=== PATIENT | male | born 1935 | race Caucasian/White ===

== ENCOUNTER 2016-04-01 06:52 | Observation (INO) | payer BC, OTHER ==
[2016-04-01] MEDS ORDERED: CEFAZOLIN 2 GM/DEXTROSE/100 ML BAG IV ONE (08:36)
[2016-04-01 09:33] LABS: ANION GAP 12 mEq/L (8-16); CARBON DIOXIDE 24 mEq/l (22-31); CHLORIDE 106 mEq/L (97-110); GLOMERULAR FILTRATION RATE > 60; GLUCOSE 109 mg/dL (70-100); POTASSIUM 3.5 mEq/L (3.5-5.2); SODIUM 142 mEq/L (134-144)
[2016-04-01] MEDS ORDERED: BUPIVACAINE/EPI 0.25% 30 ML SDV ONE (09:51)
[2016-04-01] MEDS ORDERED: SKIN ADHESIVE (DERMABOND) 1 EACH TP ONE (09:51)
[2016-04-01] MEDS ORDERED: THROMBIN (RECOMBINANT) 20,000 UNIT VIAL TP ONE (09:51)
[2016-04-01] MEDS ORDERED: BUPIVACAINE 0.25% 30 ML SDV ONE (09:51)
[2016-04-01] MEDS ORDERED: BACITRACIN 50,000 UNITS/10 ML SYR IRR ONE (09:52)
[2016-04-01] MEDS ORDERED: REMIFENTANIL HCL 1 MG VIAL ONE ×2 (10:50→12:27)
[2016-04-01] MEDS ORDERED: PROPOFOL/EMULSION 500 MG/50 ML BOTTLE IV ONE ×2 (10:52→12:27)
[2016-04-01] MEDS ORDERED: SUCCINYLCHOLINE CHLORIDE*ANESTHESIA ONLY*200 MG/10 ML SYR IVP ONE (11:33)
[2016-04-01] MEDS ORDERED: LIDOCAINE 2% 5 ML SDV ONE (11:33)
[2016-04-01] MEDS ORDERED: DEXAMETHASONE 4 MG/ML VIAL ONE (11:34)
[2016-04-01] MEDS ORDERED: ONDANSETRON 4 MG/2 ML VIAL ONE (11:34)
[2016-04-01] MEDS ORDERED: epHEDrine SULFATE 10 MG/ML SYR ONE ×2 (11:35)
[2016-04-01] MEDS ORDERED: PHENYLEPHRINE HCL 100 MCG/ML SYR ONE ×2 (11:35→11:45)
[2016-04-01] MEDS ORDERED: VASOPRESSIN 20 UNIT/ML VIAL ONE (11:52)
[2016-04-01] MEDS ORDERED: PHENYLEPHRINE 10 MG/ML SDV ONE (12:22)
[2016-04-01] MEDS ORDERED: HYDROmorphONE/DILAUDID 2 MG/ML SYR ONE (13:00)
[2016-04-01] MEDS ORDERED: MAGNESIUM HYDROXIDE 30 ML UDCUP PO PRN (13:11)
[2016-04-01] MEDS ORDERED: ACETAMINOPHEN 325 MG TAB PO PRN (13:11)
[2016-04-01] MEDS ORDERED: LACTULOSE 20 GM/30 ML UDCUP PO PRN (13:11)
[2016-04-01] MEDS ORDERED: METHOCARBAMOL 750 MG TAB PO PRN (13:11)
[2016-04-01] MEDS ORDERED: DIAZEPAM 10 MG/2 ML SYR IVP PRN (13:11)
[2016-04-01] MEDS ORDERED: POLYETHYLENE GLYCOL 3350 17 GM PKT PO PRN (13:11)
[2016-04-01] MEDS ORDERED: ONDANSETRON DISINTEGRATING 4 MG TAB PO PRN (13:11)
[2016-04-01] MEDS ORDERED: BISACODYL 10 MG SUPP PR PRN (13:11)
[2016-04-01] MEDS ORDERED: ONDANSETRON 4 MG/2 ML VIAL IVP PRN (13:11)
[2016-04-01] MEDS ORDERED: diphenhydrAMINE 25 MG CAP PO PRN (13:11)
[2016-04-01] MEDS ORDERED: HYDROmorphONE/DILAUDID 1 MG/ML SYR IVP PRN (13:11)
[2016-04-01] MEDS ORDERED: PROMETHAZINE HCL 25 MG/ML VIAL IVP PRN (13:11)
[2016-04-01] MEDS ORDERED: NS W/ 20 KCl/L 1,000 ML IV SCH (13:15)
--- NOTE | 2016-04-01 13:17 | POSTOPPROG ---
Post Op Note Date of Operation: 04/01/16 Surgeon: Ansley Bean [employer]vac Services Professional: Kinza MCCRARYC Anesthesia: GET(General Endotracheal) Pre-op Diagnosis: lumbar stenosis Post-op Diagnosis: same Indication: spinal cord compression Procedure: L2-L5 laminectomy Findings: Please see Dr Del Angel's operative report Inf/Abcess present in the surg proc area at time of surgery?: No Depth: Organ Space EBL: 50-100 Complications: none Drains: Tony Juárez Specimen(s): none PA Addendum - Addendum .: S: Pt awake in PACU, denies pain or tingling/numbness O: AAOx3 NAD VSS MAEx4 Motor 5/5 BUE/BLE Incision dressed Jpx1 +LT A: 80 yo M s/p L2-5 laminectomy P: PT/OT Pain management No brace F/u path from sx TEDs, SCDs, lovenox tomorrow Call NS with any issues
[2016-04-01] MEDS ORDERED: fentaNYL 100 MCG/2 ML INJ ONE (13:48)
--- NOTE | 2016-04-01 14:10 | DX ---
Intraoperative Fluoroscopy of the Lumbar Spine Clinical History: 80-year-old male undergoing an L2-L5 lami. Findings: Dr. Soham Del Angel used 5.5 seconds of fluoroscopy time with an exposure dose of 2.52 mGy an d two lateral spot matrix intraoperative images were acquired of the lumbar spine identifying localiz ing probes over the posterior aspects of L2 and L5. Impression: Intraoperative fluoroscopy of the lumbar spine.
--- NOTE | 2016-04-01 17:48 | GOP ---
[f rep st] OPERATIVE REPORT DATE OF OPERATION: 04/01/2016 SURGEON: Soham Del Angel MD PATIENT FLOW COORDINATOR: Ansley Bean ANESTHESIA: General. PREOPERATIVE DIAGNOSIS: 1. Severe spinal stenosis L2-L3, L3-L4, L4-L5. 2. Claudication. 3. Treatment refractory to nonoperative intervention. POSTOPERATIVE DIAGNOSIS: 1. Severe spinal stenosis L2-L3, L3-L4, L4-L5. 2. Claudication. 3. Treatment refractory to nonoperative intervention. PROCEDURE PERFORMED: 1. Decompressive laminectomy with bilateral medial facetectomies, L2-L3, L3-L4, L4-L5. 2. Evacuation of epidural lesion L4-L5. FINDINGS: SPECIMENS: None. ESTIMATED BLOOD LOSS: 50 mL. INDICATIONS: Mr. Lino is a 80-year-old gentleman, who presented with ongoing worsening bilatera l buttock claudicatory type symptoms. He had lower back pain. There was severe spinal stenosis L2-L 5. After discussion of the risks, benefits, and treatment alternatives, after failing nonoperative i nterventions, we decided proceed forth with surgery as described above. DESCRIPTION OF PROCEDURE: Patient was brought to the operating theater and underwent general endotra cheal anesthesia without complications. He had Venodynes and MOHINI hose placed. He was flipped prone on the Sukh frame. All bony processes inspected and padded. The lower lumbar region was then prep ped and draped in the usual sterile surgical fashion. A timeout was completed per protocol, and the patient received antibiotics within 1 hour of incision. Using lateral fluoroscopy and spinal needle, we then picked an entry point to the L2 through L5 level s. This was marked in the midline and the incision then infiltrated Marcaine with epinephrine. The incision was taken down with the scalpel blade and using the monopolar was taken down in the midline through the lumbodorsal fascia, and Subperiosteal dissection carried out to the medial facet joints a t L2-L3, L3-L4, and L4-5. Deep retractors were placed to maintain our exposure, and we confirmed the level using lateral fluoroscopy. At this point, we used a combination a bur tip on the drill, Kerrison punches, and Leksell rongeur to complete a decompressive laminectomy with bilateral medial facetectomies at L2-L3, L3-L4, L4-5. He had a very dark yellowish-appearing lesion in the L4-5 epidural space. We sent part of this off to Pathology for permanent analysis. At this point, we obtained hemostasis with the bipolar. The wound was irrigated copiously with bacit racin irrigation. A drain was left in the subfascial space. The wound was then closed in multiple l martinez using Vicryl sutures in the deep layers and Dermabond for the skin. The patient's wounds were dressed sterilely. He was then flipped supine onto the transfer cart, where he was awakened, extubated, and taken to the recovery room in stable condition. There were no complications and no noted changes on neuromonitoring throughout the procedure. COMPLICATIONS: None. /[id number]/MODL
[2016-04-01 20:34] VITALS: RESP 16
[2016-04-01] MEDS: OXYCODONE/APAP 5/325 TAB PO PRN (20:38)
[2016-04-01] MEDS: FAMOTIDINE 20 MG TAB PO SCH (20:38)
[2016-04-01] MEDS: SENNOSIDES/DOCUSATE SODIUM TAB PO SCH (20:39)
[2016-04-01] MEDS: FLECAINIDE ACETATE 100 MG TAB PO SCH (20:40)
[2016-04-01] MEDS: PANTOPRAZOLE SODIUM 40 MG TAB PO SCH (20:40)
[2016-04-01] MEDS ORDERED: FAMOTIDINE 20 MG/NACL 50 ML IV SCH (21:00)
[2016-04-01] MEDS: DIAZEPAM 5 MG TAB PO PRN (22:22)
[2016-04-02 04:43] VITALS: TEMP 97.9; O2SAT 95
[2016-04-02] MEDS: OXYCODONE/APAP 5/325 TAB PO PRN ×2 (05:32→12:49)
[2016-04-02] MEDS: DIAZEPAM 5 MG TAB PO PRN (05:32)
--- NOTE | 2016-04-02 07:19 | NEUSURGPN ---
Date of Surgery: 04/01/16 Post Op Day: 1 Assessment/Plan: Assessment: 80 yo M s/p L2-5 laminectomy POD #1 Plan: -s/p lumbar laminectomy: doing well. Some expected lower back pain -PT/OT pending -doing well with current pain management plan -No brace needed -F/u path from sx -TEDs, SCDs, lovenox tomorrow -call NS with any issues -plan for removal of drain prior to dc today-waiting clearance from PT/OT -pt understands and agrees Subjective: No new complaints or concerns today. No xiong/neck/chest/abd or gu complaints. No f/c/n/v/d. Objective: AAOx3/NAD MAEx4 Motor 5/5 BUE/BLE Incision dressed Jpx1 +LT Neuro Check Frequency: per routine Urinary Catheter in Place: No - Physician Discussed Patient with DrArabella: Mer Neurosurgery Physical Exam - Vitals, I&O, Labs I and O 04/01/16 04/02/16 04/03/16 05:59 05:59 05:59 Intake Total 2856 Output Total 1080 Balance 1776 Intake: Oral (ml) 400 IV Intake (ml) 950 IV Infused (ml) 1506 ceFAZolin 1 GM/DEXTROSE 50 50 ml @ 200 mls/hr IV Q8HRS AKI Rx#:[id number] Famotidine 20 mg/NaCl 50 400 ml @ 200 mls/hr IV Q12HRS AKI Rx#:[id number] NS W/ 20 KCl/L 1,000 ml @ 1056 75 mls/hr IV CONT AKI Rx #:[id number] Output: Urine (ml) 600 Toilet 600 Estimated Blood Loss (ml) 200 Wound Drainage (ml) 280 Left Back Tony Juárez 280 Other: Intake Quantity Yes Sufficient Number of Voids Toilet 1 Post Void Residual Scan Volume (ml) Toilet 75 Microbiology 04/01/16 12:30 Gram Stain - Final Back - Eswab Vital Signs Temp Pulse Resp BP Pulse Ox 36.6 C 88 16 150/79 H 95 04/02/16 04:42 04/02/16 04:42 04/02/16 04:42 04/02/16 04:42 04/02/16 04:42 Laboratory Results 04/01/16 09:50 ICD10 Worksheet Patient Problems: Problems Problem Status Diagnosed Lumbar radicular pain Acute Lumbar stenosis Acute - ICD10 Problem Qualifiers (1) Lumbar stenosis (2) Lumbar radicular pain
[2016-04-02 07:49] VITALS: BP 164/79
[2016-04-02] MEDS ORDERED: FINASTERIDE 5 MG TAB PO SCH (09:00)
[2016-04-02] MEDS ORDERED: PRAVASTATIN SODIUM 40 MG TAB PO SCH (09:00)
[2016-04-02] MEDS ORDERED: TESTOSTERONE 1% 5 GM GEL PKT TD SCH (09:00)
[2016-04-02] MEDS ORDERED: MULTIVITAMINS 1 EACH TAB PO SCH (09:00)
[2016-04-02] MEDS ORDERED: HYDROCHLOROTHIAZIDE 25 MG TAB PO SCH (09:00)
[2016-04-02] MEDS ORDERED: ATENOLOL 25 MG TAB PO SCH (09:00)
[2016-04-02] MEDS: SENNOSIDES/DOCUSATE SODIUM TAB PO SCH (09:11)
[2016-04-02] MEDS: FAMOTIDINE 20 MG TAB PO SCH (09:11)
[2016-04-02] MEDS: PANTOPRAZOLE SODIUM 40 MG TAB PO SCH (09:11)
[2016-04-02] MEDS: FLECAINIDE ACETATE 100 MG TAB PO SCH (09:12)
[2016-04-02 09:17] VITALS: PULSE 94
[2016-04-02] MEDS ORDERED: ENOXAPARIN 40 MG/0.4 ML SYR SC SCH (16:00)
== END 2016-04-02 13:56 | disposition home or self-care (01) ==
LOC: F2N 06:52 → F3N 14:36
PROVIDERS: ADMIT Neurological Surgery; ATTEND Neurological Surgery
DX: M54.5 Low back pain (principal); M48.06 Spinal stenosis, lumbar region; G89.29 Other chronic pain; M54.16 Radiculopathy, lumbar region; M47.816 Spondylosis without myelopathy or radiculopathy, lumbar region; G47.33 Obstructive sleep apnea (adult) (pediatric); I45.10 Unspecified right bundle-branch block; I25.10 Atherosclerotic heart disease of native coronary artery without angina pectoris; I35.1 Nonrheumatic aortic (valve) insufficiency; I71.4 Abdominal aortic aneurysm, without rupture; I10 Essential (primary) hypertension; N40.0 Benign prostatic hyperplasia without lower urinary tract symptoms; K21.9 Gastro-esophageal reflux disease without esophagitis; Z96.653 Presence of artificial knee joint, bilateral; G95.9 Disease of spinal cord, unspecified
CPT/HCPCS: 63047; 63048; 76001; 97161; 97165; G0378; G8987; G8988; G8989; J0330; J0690; J1100; J1170; J2370; J2405; J2704; J3010